=== PATIENT | male | born 1995 | race Caucasian/White ===

== ENCOUNTER 2023-12-21 17:31 | Emergency (ER) | payer MEDICAID, SELFPAY ==
[2023-12-21 17:41] VITALS: BP 112/82; PULSE 90; RESP 18; TEMP 36.8; O2SAT 98
--- NOTE | 2023-12-21 17:53 | ED_ITS ---
HPI - Medical Clearance General: Chief complaint: Medical Clearance Stated complaint: FITNESS EVAL Time Seen by Provider: 12/21/23 17:38 Source: patient Mode of arrival: other (Law enforcement) History of Present Illness: 28-year-old male was [facility] a history of cerebral palsy was brought in for evaluation for fit for confinement patient is awake alert and oriented denies any recent illnesses. Review of Systems Const: Denies: fever(s) or chills Card: Denies: chest pain Resp: Denies: dyspnea GI: Denies: abdominal pain : Denies: dysuria, urinary frequency or urinary urgency Musc: Denies: neck pain or back pain Skin/Breast: Denies: rash Physical Exam Const: COMMON NORMALS: no acute distress GENERAL APPEARANCE: cooperative and comfortable ORIENTATION/CONSCIOUSNESS: Yes awake, Yes oriented to person, Yes oriented to place and Yes oriented to time HENMT: COMMON NORMALS: normocephalic, atraumatic and hearing grossly normal bilaterally HEAD & SCALP: normocephalic and atraumatic Resp: COMMON NORMALS: normal respiratory effort, No retractions, No use of accessory muscles and clear to auscultation bilaterally AUSCULTATION: clear to auscultation bilaterally Cardio: COMMON NORMALS: regular rate, regular rhythm and No murmurs present (Cardio) RATE: regular rate RHYTHM: regular rhythm GI: COMMON NORMALS: Soft to palpation and No hepatosplenomegaly present AUSCULTATION: Yes normoactive bowel sounds PALPATION: Yes Soft to palpation, No Tenderness to palpation present (GI), No Guarding due to palpation present (GI) and Yes No hepatosplenomegaly present Extremity: COMMON NORMALS: normal to inspection, capillary refill normal, no clubbing, cyanosis or edema, no calf tenderness and no pedal edema Neuro: SENSORIUM/ORIENTATION: Yes oriented to person, Yes oriented to place and Yes oriented to time Skin: COMMON NORMALS: no rashes or lesions noted GENERAL SKIN EXAM: no rashes or lesions noted Course Vital Signs: Vital signs: Vital Signs Temperature 98.3 F 12/21/23 17:41 Pulse Rate 104 H 12/21/23 17:54 Respiratory Rate 18 12/21/23 17:41 Blood Pressure 112/82 12/21/23 17:54 Pulse Oximetry 98 12/21/23 17:41 Oxygen Delivery Me thod Room Air 12/21/23 17:41 MDM - Medical Clearance Medical Decision Making No acute medical conditions at this time. No emergent medical condition at this time patient is felt to be fit for confinement discharged with [facility] deputies All radiology interpretation(s) finalized by discharge Discharge Plan Discharge Patient Disposition: Home Clinical Impression: Cerebral palsy Condition: Stable Discharge Orders: Discharge ED (Routine); Ordered 12/21/23 Ordered By: James Anthony Referrals: Jennifer Lugo [Primary Care Provider] - Discharge Diet: Usual diet Discharge Activity: Resume usual activity Patient Instructions: Opioid Safety, Pain Management Activity Restrictions/Additional Instructions: You are seen in the emergency room to evaluate for fit for confinement there are no acute or emergent apparent medical conditions at this time that would prevent confinement by law enforcement. Coding Level of Care Code ED Regular Senior Care Provider for Essie Paul
[2023-12-21 17:54] VITALS: BP 112/82; PULSE 104
== END 2023-12-21 18:09 | disposition home or self-care (01) ==
PROVIDERS: Emergency Provider Family Medicine; PCP Physical Therapist
DX: Z02.89 Encounter for other administrative examinations (principal); G80.9 Cerebral palsy, unspecified
CPT/HCPCS: 99281